=== PATIENT | male | born 1955 | race Caucasian/White ===

== ENCOUNTER 2019-07-28 09:26 | Outpatient (CLI) | payer BC ==
--- NOTE | 2019-07-28 10:34 | RAD ---
CERVICAL SPINE SIX VIEWS: HISTORY: Neck pain. Right hand weakness. FINDINGS: On the AP projection, there is evidence of facet arthropathy. On the open-mouth projection, appropria te alignment of the lateral masses of C1 and C2. Intact odontoid process. On the neutral positions, there is no prevertebral soft tissue swelling. Predental space is normal. Cervical spine vertebral kylie dy height is maintained. There is no fracture. Mild loss of disc space height and osteophyte formation at C4-C5. Moderate loss of disc space height and osteophyte formation at C5-C6 and C6-C7. I n the neutral position, there is no significant spondylolisthesis. Less than 1 mm of retrolisthesis of C3 upon C4. Upon flexion and extension, no significant change in alignment. IMPRESSION: Degenerative changes of the cervical spine as detailed above. No malalignment in the neutral position . No significant change in alignment upon flexion or extension. Transcribed Date/Time: 07/28/2019 10:41 AM
--- NOTE | 2019-07-28 10:42 | CT ---
CT CERVICAL SPINE WITHOUT CONTRAST: HISTORY: Trauma. Pain. COMPARISON: None. FINDINGS: No craniocervical dissociation. Appropriate alignment of the lateral masses of C1 and C2. Intact odon toid process Appropriate alignment of the facets. Straightening of normal cervical lordosis. There is 2.6 mm of retrolisthesis of C3 upon C4. Soft tissue neck structures: No mass, lymphadenopathy or hematoma. No prevertebral soft tissue swelli ng. Upper mediastinum and lung apices: Unremarkable CENTRAL SPINAL CANAL C2-C3: Central disc protrusion abuts the thecal sac. No significant central canal stenosis or signifi cant neural foraminal narrowing. C3-C4: Broad-based disk osteophyte complex abuts the thecal sac. Mild to moderate central canal steno sis. Moderate right and moderate to severe left neural foramina narrowing due to uncovertebral hypertrophy. C4-C5: Broad-based disk osteophyte complex abuts the thecal sac. Mild central canal stenosis. Mild ri ght neural foraminal narrowing due to uncovertebral hypertrophy. Mild to moderate left foraminal narrowing due to uncovertebral hypertrophy. C5-C6: Moderate to severe loss of disc space height. Broad-based disk osteophyte complex abuts the th ecal sac. At least moderate central canal stenosis. Moderate to severe bilateral foraminal narrowing due to uncovertebral hypertrophy. C6-C7: Broad-based disk osteophyte complex results in at least moderate central canal stenosis. Sever e right and moderate to severe left foraminal narrowing due to uncovertebral hypertrophy. C7-T1: Broad-based disk osteophyte complex with at least mild central canal stenosis. Mild bilateral neural foraminal narrowing. Vertebral bodies: Cervical spine vertebral body height is maintained. No fracture. IMPRESSION: Multilevel degenerative changes of the cervical spine as detailed above. Transcribed Date/Time: 07/28/2019 10:46 AM
== END 2019-07-28 09:27 | disposition home or self-care (01) ==
LOC: TBSIIMAG 09:26
PROVIDERS: ATTEND Surgery
DX: M50.10 Cervical disc disorder with radiculopathy, unspecified cervical region (principal); M47.22 Other spondylosis with radiculopathy, cervical region
CPT/HCPCS: 72050; 72125

== ENCOUNTER 2019-10-15 08:53 | Outpatient (CLI) | payer BC ==
[2019-10-15 10:38] LABS: INR-International Normal Ratio 0.9; PTT 27.1 SEC (22.9-36.1); Prothrombin Time 12.6 SEC (12.0-14.7)
[2019-10-15 10:43] LABS: Mean Corpuscular HGB CONC 33.2 g/dL (32.0-36.0); Mean Corpuscular Hemoglobin 30.3 pg (27.0-31.0); Mean Corpuscular Volume 91.1 fL (78.0-98.0); Mean Platelet Volume 7.2 fL (7.4-10.4); Platelet Count 275 thou/uL (130-400); RBC Distribution Width 11.8 % (11.5-14.5); Red Blood Cell (RBC) Count 4.61 mill/uL (4.70-6.10); White Blood Cell (WBC) Count 7.2 thou/uL (4.8-10.8)
[2019-10-15 10:53] LABS: Anion Gap 11 mmol/L (10-20); BUN (Urea Nitrogen) 12 mg/dL (8.4-25.7); Calc. Creatinine Clearance 0 mL/min (70-130); Calcium 9.8 mg/dL (7.8-10.44); Carbon Dioxide 25 mmol/L (23-31); Chloride 108 mmol/L (98-107); Estimated GFR-MDRD 88; Glucose 118 mg/dL (80-115); Potassium 4.1 mmol/L (3.5-5.1); Sodium 140 mmol/L (136-145)
== END 2019-10-15 08:54 | disposition home or self-care (01) ==
LOC: LABBT 08:53
PROVIDERS: ATTEND Surgery
DX: Z01.818 Encounter for other preprocedural examination (principal); M54.12 Radiculopathy, cervical region; M48.02 Spinal stenosis, cervical region
CPT/HCPCS: 80048; 85027; 85610; 85730; 93005; 93010

== ENCOUNTER 2019-10-21 05:53 | Inpatient (IN) | payer BC ==
[2019-10-15 09:46] VITALS: BMI 30.8
[2019-10-21] MEDS ORDERED: Levofloxacin 500 mg/D5W 100 ml Premix Bag ONE (06:09)
[2019-10-21] MEDS ORDERED: Clindamycin/D5W 900 mg/50 ml Premix Bag ONE (06:09)
[2019-10-21] MEDS ORDERED: Thrombin 5000 UNITS/5 ML VIAL ONE (06:26)
[2019-10-21] MEDS ORDERED: Fentanyl 100 MCG/2 ML VIAL ONE ×2 (07:44→10:18)
[2019-10-21] MEDS ORDERED: Fleet Enema 133 ML BOT PR PRN (09:53)
[2019-10-21] MEDS ORDERED: Mag-Al 1200 mg/1200 mg/30 ML UDCUP PO PRN (09:53)
[2019-10-21] MEDS ORDERED: HYDROcodone/Acetaminophen 7.5/325 mg Tablet PO PRN (09:53)
[2019-10-21] MEDS ORDERED: Milk Of Magnesia 30 ML UDCUP PO PRN (09:53)
[2019-10-21] MEDS ORDERED: Bisacodyl 10 MG SUPP PR PRN (09:53)
[2019-10-21] MEDS ORDERED: tiZANidine HCl 4 MG TAB PO PRN (09:53)
[2019-10-21] MEDS ORDERED: Acetaminophen/Codeine 30-300mg Tablet PO PRN (09:53)
[2019-10-21] MEDS ORDERED: Acetaminophen 325 MG TAB PO PRN (09:53)
[2019-10-21] MEDS ORDERED: Ondansetron PF 4 MG/2 ML Vial IVP PRN (09:53)
[2019-10-21] MEDS ORDERED: Morphine 2 MG/ML SYRINGE SLOW IVP PRN (09:53)
[2019-10-21] MEDS ORDERED: traMADol HCl 50 MG TAB PO PRN (09:53)
[2019-10-21] MEDS ORDERED: PACU-Morphine 4MG/ML VIAL SLOW IVP PRN (10:03)
[2019-10-21] MEDS ORDERED: HYDROmorphone 2 MG/ML VIAL SLOW IVP PRN (10:03)
[2019-10-21] MEDS ORDERED: Ondansetron HCl/PF 4 MG/2 ML Vial IVP PRN (10:03)
[2019-10-21] MEDS ORDERED: Morphine Sulfate 2 MG/ML SYRINGE SLOW IVP PRN (10:03)
[2019-10-21] MEDS ORDERED: Promethazine HCl 25 MG/ML VIAL IM PRN (10:03)
[2019-10-21] MEDS ORDERED: Promethazine HCl 25 MG/ML VIAL SLOW IVP PRN (10:03)
[2019-10-21] MEDS: Sodium Chloride 0.9% 1,000 ML IV SCH (12:30)
[2019-10-21] MEDS ORDERED: PHENYLEPHRINE-NS 100 MCG/ML 10 ML SYRINGE ONE (13:52)
[2019-10-21] MEDS ORDERED: Ondansetron PF 4 MG/2 ML Vial ONE (13:52)
[2019-10-21] MEDS ORDERED: Lidocaine 1% PF 5 ML VIAL ONE ×2 (13:52)
[2019-10-21] MEDS ORDERED: Rocuronium Bromide 10 MG/ML (10ML VIAL) ONE (13:52)
[2019-10-21] MEDS ORDERED: Dexamethasone 20 MG/5 ML VIAL ONE (13:52)
[2019-10-21] MEDS ORDERED: Glycopyrrolate 0.2 MG/ML 5 ML SYRINGE ONE (13:52)
[2019-10-21] MEDS ORDERED: PROPOFOL 200 MG/20 ML VIAL ONE (13:52)
[2019-10-21] MEDS ORDERED: Clindamycin/D5W 900 MG in Premix Bag 1 BAG IVPB SCH (14:00)
[2019-10-21] MEDS: Clindamycin/D5W 900 MG in Premix Bag 1 BAG IVPB SCH (15:46)
[2019-10-21] MEDS: Gabapentin 300 MG CAP PO SCH ×2 (15:53→20:58)
[2019-10-21] MEDS ORDERED: Lisinopril 10 MG TAB PO SCH (21:00)
[2019-10-21] MEDS ORDERED: Dutasteride 0.5 MG CAP PO SCH (21:00)
[2019-10-21] MEDS ORDERED: Tamsulosin HCl 0.4 MG CAP PO SCH (21:00)
[2019-10-21] MEDS ORDERED: Atorvastatin Calcium 40 MG TAB PO SCH (21:00)
[2019-10-22] MEDS ORDERED: SUGAMMADEX SODIUM 200 MG/2 ML VIAL ONE (00:09)
[2019-10-22] MEDS: Sodium Chloride 0.9% 1,000 ML IV SCH (00:24)
[2019-10-22] MEDS: Clindamycin/D5W 900 MG in Premix Bag 1 BAG IVPB SCH ×2 (00:41→09:36)
[2019-10-22] MEDS ORDERED: Pantoprazole 40 MG VIAL IVP SCH ×2 (09:00→11:00)
[2019-10-22] MEDS: Gabapentin 300 MG CAP PO SCH (09:36)
--- NOTE | 2019-10-22 10:01 | OP ---
DATE OF PROCEDURE: 10/21/2019 DATA INTEGRATION ARCHITECT: Kirsten Toscano PA-C PRE-PROCEDURE DIAGNOSIS: Multilevel cervical stenosis with neck and arm pain with C6-C7-C8 radiculopathies, right sided. POSTPROCEDURE DIAGNOSIS: Multilevel cervical stenosis with neck and arm pain with C6-C7-C8 radiculopathies, right sided. PROCEDURE PERFORMED: 1. C5-C6, C6-C7, C7-T1 anterior cervical discectomy and fusion to allow for anterior cervical diskectomy, decompression of neural elements. 2. Placement of interbody spacers, packed with local bone autograft obtained with same incision, allograft C5-C6, C6-C7, C7-T1. 3. Anterior cervical plate and screw fixation C5-C6, C7-T1. 4. Use of operative microscope for microdissection. DESCRIPTION OF PROCEDURE: After informed consent was obtained from the patient, the patient was brought to the OR. Proper patient, pause, and identification were carried out. He was placed under excellent general endotracheal anesthesia and positioned supine on the OR table. Appropriate padding allowed for approach to the C5-T1 segments. We then shanda out an oblique howard that would allow for approach to the C5-T1 segments with a possible transmanubrial extension with Dr. Baldwin, should it have been necessary, but it was not. We then performed sterile cleansing, preparation, and draping, opened the wound, proceeded lateral to the tracheoesophageal bundle, medial to the right carotid sheath. We identified the prevertebral layer of deep cervical fascia and the longus colli muscles. These were swept laterally. We then turned our attention to distraction of C5-C6, diskectomy was performed. We used operative microscope for microdissection with excellent decompression of common dural tube in the C6 nerve roots. We then turned our attention to our placement of spacer packed with graft, the same thing was done at C6-C7 and C7-T1. Multiple disk fragments were removed from the right C7-T1 segment, in particular the right C8 neuroforamen, freeing up the right C8 nerve root which was the epicenter of the majority of the patient's symptoms. With excellent decompression of common dural tube, bilateral C6, bilateral C7 bilateral C8 nerve roots, copious irrigation occurred throughout maximizing hemostasis. Spacers were placed again at from C5-T1 and a total of three. The microscope was removed anterior cervical plate and screw fix was performed with final tightening. Copious irrigation occurred throughout as did maximizing hemostasis. The wound was then closed over anatomic layers following placement . Job ID: [id number]
[2019-10-22] MEDS ORDERED: Sodium Chloride 0.9% (PF) 10 ML VIAL FS PRN (10:52)
[2019-10-22] MEDS ORDERED: Dexamethasone 4 mg/ml Vial SLOW IVP SCH (11:00)
[2019-10-22 11:31] VITALS: BP 106/69; TEMP 97.9
--- NOTE | 2019-10-23 02:04 | DIS ---
DATE OF ADMISSION: 10/21/2019 DATE OF DISCHARGE: 10/22/2019 DISCHARGE DIAGNOSES: 1. Cervical stenosis with myelopathy. 2. Cervical radiculopathy. 3. Status post C5-T1 anterior cervical diskectomy and fusion on 10/21/2019. HOSPITAL COURSE: Mr. Houser is a 64-year-old gentleman who is postoperative day #1 after undergoing a C5-T1 ACDF yesterday. When evaluated this morning, he was resting comfortably in bed with his [place] J collar in place. He reports [id number] pain in his neck. He denies any arm pain or weakness. He does report some minimal numbness/tinging and weakness in his fingers. He states the finger weakness was present before surgery. Otherwise, he states that he has decent hand healthcare or medical strength. He has no difficulty moving his arms or legs. He has been ambulatory to the restroom and urinating without difficulty. He is a very hoarse but reports he has been tolerating a full liquid diet. He was provided a pill stone crusher operator to take his oral medications. His anterior cervical ROOPA drain output was 15 mL overnight, 50 mL total output over the last 24 hours. His drain was removed this morning without difficulty and his incision was re- covered with clean, dry dressing. The patient states that he is ready to go home today. PHYSICAL EXAMINATION: The patient is awake, alert, and oriented. He responds to questioning appropriately. He is resting comfortably in bed, in no apparent distress. 5/5 strength throughout his deltoid, trapezius, triceps, and biceps bilaterally. Good hand healthcare or medical strength bilaterally, however he does have weakness in his finger extensors. 5/5 strength in his iliopsoas, hamstring, and quadriceps bilaterally. Good strength with dorsiflexion and plantar flexion of both feet. Sensation to light touch is intact and equal bilaterally. His anterior cervical incision remains covered with Steri- Strips, and there is no significant bleeding or drainage from the wound. Overall, patient appears to be doing very well postoperatively. ROOPA drain removed. Discussed postoperative restrictions and wound care instructions. Provided appropriate pain medications upon discharge. We will arrange for postoperative follow-up on an outpatient basis. The patient will call sooner with any questions or concerns. Job ID: [id number] [facility]
[2019-10-23] MEDS ORDERED: Pantoprazole 40 MG VIAL IVP SCH (09:00)
== END 2019-10-22 12:40 | disposition home or self-care (01) | DRG 472 ==
LOC: SURG A 05:53
PROVIDERS: ADMIT Surgery; ATTEND Surgery
PROC: 0RG2070 Fusion of 2 or more Cervical Vertebral Joints with Autologous Tissue Substitute, Anterior Approach, Anterior Column, Open Approach (ICD-10-PCS; principal; 2019-10-21)
PROC: 0RG4070 Fusion of Cervicothoracic Vertebral Joint with Autologous Tissue Substitute, Anterior Approach, Anterior Column, Open Approach (ICD-10-PCS; 2019-10-21)
PROC: 0RB30ZZ Excision of Cervical Vertebral Disc, Open Approach (ICD-10-PCS; 2019-10-21)
PROC: 01N10ZZ Release Cervical Nerve, Open Approach (ICD-10-PCS; 2019-10-21)
PROC: 00NW0ZZ Release Cervical Spinal Cord, Open Approach (ICD-10-PCS; 2019-10-21)
DX: M48.02 Spinal stenosis, cervical region (principal); M50.022 Cervical disc disorder at C5-C6 level with myelopathy; M50.122 Cervical disc disorder at C5-C6 level with radiculopathy; I10 Essential (primary) hypertension; E78.5 Hyperlipidemia, unspecified; G47.30 Sleep apnea, unspecified; N40.0 Benign prostatic hyperplasia without lower urinary tract symptoms; Z88.0 Allergy status to penicillin
CPT/HCPCS: 76000; C1776; C9113; J1100; J1956; J2001; J2405; J2704; J3010; J3490

== ENCOUNTER 2019-12-10 09:22 | Outpatient (CLI) | payer BC ==
--- NOTE | 2019-12-10 09:56 | RAD ---
EXAM: XR Cerv Sp Ap Lat STANDARD PROVIDED CLINICAL HISTORY: Neck pain, cervical fusion COMPARISON: 07/28/2019 FINDINGS: Interval ACDF C5-T1. No prevertebral soft tissue swelling apparent. Cervical alignment appears normal . Vertebral body heights appear preserved. No evidence for hardware loosening or migration. Visualized lung apices appear clear. IMPRESSION: Interval postoperative change.
== END 2019-12-10 09:23 | disposition home or self-care (01) ==
LOC: SCSRAD 09:22
PROVIDERS: ATTEND Surgery
DX: M54.2 Cervicalgia (principal); Z98.890 Other specified postprocedural states
CPT/HCPCS: 72040